=== PATIENT | male | born 1995 | race Caucasian/White ===

== ENCOUNTER 2018-07-13 13:42 | Emergency (ER) | payer OTHER ==
[~2018-07-13] VITALS: Ht 177.8 cm; Wt 59.0 kg
[2018-07-13] MEDS ORDERED: VENTOLIN HFA 1818 GM INH (13:52)
[2018-07-13] MEDS ORDERED: PROVENTIL HFA6.7 G1 INH (16:08)
[2018-07-13 16:16] VITALS: BP 122/74
== END 2018-07-13 16:17 | disposition home or self-care (01) ==
LOC: ER 13:42
PROC: 0PSTXZZ Reposition Right Finger Phalanx, External Approach (ICD-10-PCS; principal; 2018-07-13)
DX: S62.326A Displaced fracture of shaft of fifth metacarpal bone, right hand, initial encounter for closed fracture (principal); F17.210 Nicotine dependence, cigarettes, uncomplicated; J45.909 Unspecified asthma, uncomplicated; W22.8XXA Striking against or struck by other objects, initial encounter; Y92.009 Unspecified place in unspecified non-institutional (private) residence as the place of occurrence of the external cause; Y93.89 Activity, other specified; Y99.8 Other external cause status

== ENCOUNTER 2018-09-25 18:48 | Emergency (ER) | payer OTHER ==
[~2018-09-25] VITALS: Ht 177.8 cm; Wt 59.0 kg
[~2018-09-25 18:48] MED LIST: PROVENTIL HFA6.7 G1 INH; VENTOLIN HFA 1818 GM INH
== END 2018-09-25 21:26 | disposition home or self-care (01) ==
LOC: ER 18:48
DX: S66.822A Laceration of other specified muscles, fascia and tendons at wrist and hand level, left hand, initial encounter (principal); F17.210 Nicotine dependence, cigarettes, uncomplicated; J45.909 Unspecified asthma, uncomplicated; W20.8XXA Other cause of strike by thrown, projected or falling object, initial encounter; Y92.89 Other specified places as the place of occurrence of the external cause; Y93.89 Activity, other specified; Y99.8 Other external cause status

== ENCOUNTER 2020-11-16 16:44 | Emergency (ER) | payer OTHER ==
[~2020-11-16] VITALS: Ht 177.8 cm; Wt 56.7 kg
[2020-11-16 18:52] VITALS: BP 138/79
== END 2020-11-16 18:52 | disposition home or self-care (01) ==
LOC: ER 16:44
DX: S01.01XA Laceration without foreign body of scalp, initial encounter (principal); J45.909 Unspecified asthma, uncomplicated; H92.01 Otalgia, right ear; F17.210 Nicotine dependence, cigarettes, uncomplicated; Z79.899 Other long term (current) drug therapy; Y04.2XXA Assault by strike against or bumped into by another person, initial encounter; Y93.89 Activity, other specified; Y92.89 Other specified places as the place of occurrence of the external cause; Y99.8 Other external cause status